=== PATIENT | male | born 1960 | race Caucasian/White ===

== ENCOUNTER 2017-03-11 10:45 | Emergency (ER) ==
[2017-03-11 10:52] VITALS: BP 143/84; TEMP 97.7; BMI 23.3
--- NOTE | 2017-03-11 11:13 | ED.PDOC ---
General ED Provider: Dr. JULIET LEE-ER Chief Complaint: Abscess Stated Complaint: fredrick had this lump behind my left breast Time Seen by Physician: 10:50 Mode of Arrival: Walk-In Information Source: Family Exam Limitations: No limitations Primary Care Provider: KLAUDIA MARSHALL Nursing and Triage Documentation Reviewed and Agree: Yes Reviewed sepsis parameters & appropriate labs ordered?: Yes System Inflammatory Response Syndrome: Not Applicable Sepsis Protocol: For patient's 13 years and over: Temp is 96.8 and below OR 101 and greater Pulse >90 BPM Resp >20/minute Acutely Altered Mental Status Are patient's symptoms suggestive of a new infection, such as: -Pneumonia -Skin, Soft Tissue -Endocarditis -UTI -Bone, Joint Infection -Implantable Device -Acute Abdominal Infection -Wound Infection -Meningitis -Blood Stream Catheter Infection -Unknown Skin Complaint Exam - Skin/Soft Tissue Complaint/Exam Onset/Duration: 4mos Symptoms Are: Still present Timing: Constant Initial Severity: Mild Current Severity: Mild Location: left breast Character: Reports: Redness, Swelling, Raised, Painful Aggravating: Reports: None Alleviating: Reports: None Associated Signs and Symptoms: Reports: Tenderness Related Surgical History: Reports: None Recent Exposure to Others w/Similar Symptoms: No Skin Findings: Present: Other Joint Tenderness Present: No Differential Diagnoses: Other (left breast mass) Review of Systems - Review Of Systems Constitutional: Reports: No symptoms Eyes: Reports: No symptoms Ears, Nose, Mouth, Throat: Reports: No symptoms Respiratory: Reports: No symptoms Cardiac: Reports: No symptoms GI: Reports: No symptoms : Reports: No symptoms Musculoskeletal: Reports: No symptoms Skin: Reports: Lumps (3cm left breast mass) Neurological: Reports: No symptoms Endocrine: Reports: No symptoms Hematologic/Lymphatic: Reports: No symptoms All Other Systems: Reviewed and Negative Past Medical History - Past Medical History Previously Healthy: Yes Endocrine: Reports: Dyslipidemia Cardiovascular: Reports: None Respiratory: Reports: COPD, Asthma Hematological: Reports: None Gastrointestinal: Reports: None Genitourinary: Reports: Kidney stones Neuro/Psych: Reports: None Musculoskeletal: Reports: None Cancer: Reports: None - Surgical History General Surgical History: Reports: None - Family History Family History: Reports: None - Social History Smoking Status: Current every day smoker, Heavy tobacco smoker Hx Substance Use: No Alcohol Screening: None Physical Exam - Physical Exam Appearance: Well-appearing, No pain distress, Well-nourished Pain Distress: Mild Eyes: FABIAN, EOMI, Conjunctiva clear ENT: Ears normal, Nose normal, Oropharynx normal Neck: Supple Respiratory: Airway patent, Breath sounds clear, Breath sounds equal, Respirations nonlabored Cardiovascular: RRR GI/: Soft Musculoskeletal: Normal strength, ROM intact, No edema, No calf tenderness Skin: Warm, Dry, Normal color Neurological: Sensation intact, Motor intact, Reflexes intact, Cranial nerves intact, Alert, Oriented Psychiatric: Affect appropriate, Mood appropriate Critical Care Note - Critical Care Note Total Time (mins): 0 Course - Course Orders, Labs, Meds: Orders Category Date Time Status Hydrocodone Bit/Acetaminophen [[place] 10-325] MEDS 03/11/17 11:21 Stat 2 tab PO ONCE STA Vital Signs: Temp Pulse Resp BP Pulse Ox 03/11/17 10:45 97.7 F 73 16 143/84 H 98 Departure - Departure Time of Disposition: 11:13 Disposition: HOME SELF-CARE Discharge Problem: Left breast mass Instructions: Breast Mass (ED) Condition: Good Pt referred to PMD for follow-up: Yes IPMP verified?: No Additional Instructions: return tomorrow for breast u/s and mammogram and then its important for you to follow up with Klaudia in the clinic on sunday--you will need surgical referral Allergies/Adverse Reactions: Allergies No Known Allergies Allergy (Verified 03/11/17 10:53) Home Medications: Ambulatory Orders Hydrocodone/Acetaminophen [[place] 5-325 Tablet] 1 tab PO DAILY PRN 06/16/15 Disposition Discussed With: Patient
[2017-03-11] MEDS ORDERED: NORCO 10-325 PO STA (11:21)
== END 2017-03-11 11:36 | disposition home or self-care (01) ==
LOC: ED 10:45
DX: N63.0 Unspecified lump in unspecified breast (principal); F17.210 Nicotine dependence, cigarettes, uncomplicated
CPT/HCPCS: 99282

== ENCOUNTER 2017-03-12 08:59 | Outpatient (CLI) ==
[2017-03-11 10:52] VITALS: BMI 23.3
--- NOTE | 2017-03-12 10:30 | US ---
PRELIMINARY EXAM: Digital diagnostic mammogram with tomosynthesis, CAD and bilateral diagnostic breast ultrasou nd HISTORY: Pain and mass behind the left nipple COMPARISON: None available FINDINGS: CC and MLO views of the bilateral breast were performed digitally. There is soft tissue d ensity posterior to both nipples with a rounded mass of soft tissue posterior to the left nipple. Th ere is an adjacent upper outer left breast nodule/mass measuring 0.6 cm in diameter. Sonographic evaluation of the right breast demonstrates a heterogeneous collection posterior to the l eft nipple with peripheral color Doppler flow and no central flow with hypo echogenicity centrally milan ggestive of fluid. This measures 2.9 x 2.6 x 2.4 cm. The upper outer left breast nodule is consiste nt with a lymph node on ultrasound measuring 0.9 cm in diameter. Sonographic evaluation of the right breast demonstrates minimal soft tissue posterior to the nipple m easuring 1.5 x 1.0 x 2.5 cm with minimal internal color Doppler flow. This may represent benign gyne comastia. IMPRESSION: 1. Complex mass-like collection with central fluid in the left retroareolar space is concerning for abscess/infection. This appears centrally necrotic and would be an abnormal sonographic appearance f or gynecomastia. 2. Benign left lymph node. 3. Sonographic appearance of the right breast is most consistent with gynecomastia. RECOMMENDATION: Clinical follow-up is recommended to correlate for concern for abscess versus infection. If further evaluation is clinically indicated, short-term follow-up ultrasound may be obtained versus tissue beatriz pling. Follow-up to resolution is recommended. BIRADS category III: Probable benign finding.
== END 2017-03-12 09:00 | disposition home or self-care (01) ==
LOC: RAD 08:59
PROVIDERS: ATTEND Family Medicine
DX: N63.0 Unspecified lump in unspecified breast (principal)

== ENCOUNTER 2017-03-13 14:30 | Outpatient (CLI) | END 2017-03-13 14:31 | disposition home or self-care (01) | LOC: LAB 14:30 | PROVIDERS: ATTEND Nurse Practitioner Family | DX: Z00.00 Encounter for general adult medical examination without abnormal findings (principal) | CPT/HCPCS: 36415; 80053; 80061; 84443; 85025 ==